=== PATIENT | male | born 1970 ===

== ENCOUNTER 2024-06-30 19:04 | Emergency (ER) | payer BC, SELFPAY ==
[2024-06-30 19:24] VITALS: BP 117/85
--- NOTE | 2024-06-30 19:30 | ED.GENMED ---
ED Provider Triage
<Blade Whitmore PA-C - Last Filed: 06/30/24 19:31>
-
Patient seen by provider in Triage?: Seen in Triage
Attestation: A medical screening examination has been initiated by a qualified medical provider. Based on the assessment performed at this time, it has been determined that an emergent medical condition may exist and the patient has been informed
that further medical evaluation and possible additional diagnostic testing may be needed.
HPI: Flulike symptoms since June 21. Family member at home was positive for the flu on 19 June. Started Tamiflu but experiencing side effects unable to tolerate. Went to urgent care today and had questionable urinary symptoms. Currently
had microscopic hematuria and protein in the urine and was recommended to come to the ER for further evaluation. Patient still endorses some mild upper respiratory-like symptoms currently no urinary symptoms. Urinalysis and chest x-ray ordered.
GENERAL: Alert , in no apparent distress
EYE: No visual abnormalities.
NECK: Trachea midline
ENT: No visible abnormalities.
LUNGS: No acute respiratory distress
NEUROLOGICAL: Alert and oriented
SKIN: Skin intact. No visible changes.
MUSCULOSKELETAL: Moving extremities normally
PSYCH: Normal and appropriate interaction.
This is a medical evaluation conducted in person to initiate diagnostic evaluation and provide initial therapeutics. Please see further documentation by the treating clinician.
History of Present Illness
<Blade Whitmore PA-C - Last Filed: 06/30/24 19:31>
General
Chief Complaint: Cold/Flu/URI Symptoms
Time Seen by Provider: 06/30/24 23:19
<WADE Robertson - Last Filed: 07/01/24 01:53>
General
Source: patient
Exam Limitations: none
History of Present Illness
History of Present Illness:
This is a 54 year old male that comes in with c/o hematuria. States that he has had the flu for about 1.5 weeks. Today he started with feeling like someone kicked him in the groin and blood in his urine. States that he went to and was told to
come to the ER. States that he was a little nauseated. States that he had a fever on the 18 and 19. States that he had a headache this morning but he took his medication and it went away. States that he feels lightheaded and like he is in a fog.
States that he does have some urinary burning. Denies any fever, chills, chest pain, SOB, abd pain, vomiting, diarrhea.
Past History
<WADE Robertson - Last Filed: 07/01/24 01:53>
Past History
ED Past Medical History: HTN and Other (Migraines); Negative Asthma, Hypercholesterolemia or NIDDM
ED Past Surgical History: None
Social History
Tobacco: Non-smoker
Alcohol: Occasional
Personal:
Living: with family
Employment: Employed
Review of Systems
<WADE Robertson - Last Filed: 07/01/24 01:53>
Review of Systems
All Other Systems: ROS reviewed and negative except as documented in HPI and ROS
Constitutional: Reports no symptoms; Denies fever or chills
EENT: Reports no symptoms
Respiratory: Reports no symptoms; Denies cough or trouble breathing
Cardiac: Reports no symptoms; Denies chest pain
ABD/GI: Reports nausea; Denies abdominal pain, vomiting or diarrhea
: Reports bleeding and other (Feels like he was kicked in the groin bilaterally)
Musculoskeletal: Reports no symptoms
Skin: Reports no symptoms
Neurological: Reports other (Lightheaded )
Psychiatric: Reports no symptoms
Phy Exam
<WADE Robertson - Last Filed: 07/01/24 01:53>
General Physical Exam
General Presentation: no apparent distress
General age: appears stated age
General Skin: warm and dry
General Habitus: normal
General Mental: alert
General Hydration: appears well hydrated
ENT Exam
ENT Exam: TM's normal, pharynx normal and neck supple
Eye Exam
Eye Exam: EOMI
Cardiovascular Exam
Cardiovascular Exam: regular rate/rhythm, no edema, no murmur and normal peripheral pulses
Pulmonary Exam
Pulmonary Exam: lungs clear, no respiratory distress, no rales, chest non tender, no crackles, no rhonchi, no wheezing and no cough
Gastrointestinal Exam
Gastrointestinal Exam: normal bowel sounds, non tender, soft, no organomegaly, no pulsatile mass and non distended
Musculoskeletal Exam
Musculoskeletal Exam: full ROM and no edema
Skin Exam
Skin Exam: normal color, warm/dry, no rash and no petechia
Psychiatric Exam
Psychiatric Exam: normal mood/affect
Course
<Blade Whitmore PA-C - Last Filed: 06/30/24 19:31>
Orders/Labs/Results
Orders:
Orders
06/30/24 19:30
CR Chest - 2 Views Urgent
Comment:
Reason For Exam: cough
06/30/24 19:35
Urinalysis Reflex To Culture Urgent
Date Specimen was Collected: 06/30/24
Time Specimen was Collected: 19:29
Urine Microscopic Reflex Cult Urgent
Urine Culture Urgent
JAYLIN Source: U
Specimen Description:
Date Specimen was Collected: 06/30/24
Time Specimen was Collected: 19:29
06/30/24 23:28
0.9% Sodium Chloride 500 ml [Nss] 500 ml IV BOLUS
06/30/24 23:48
Basic Metabolic Panel Urgent
Comment: NO K
Complete Blood Count/With Diff Urgent
07/01/24 00:15
CT Abd/pel Without Iv Or Oral Urgent
Reason For Exam: Hematuria, Groin pain
07/01/24 00:24
Ketorolac [Toradol] 30 mg .ROUTE .STK-MED ONE
07/01/24 00:26
Ketorolac [Toradol] 30 mg IM NOW STA
07/01/24 00:27
Ketorolac [Toradol] 30 mg IV NOW STA
07/01/24 00:44
HYDROmorphone [Dilaudid] 1 mg .ROUTE .STK-MED ONE
Ondansetron Injectable [Zofran] 4 mg .ROUTE .STK-MED ONE
07/01/24 00:45
Ondansetron Injectable [Zofran] 4 mg IV NOW STA
07/01/24 00:48
HYDROmorphone [Dilaudid] 1 mg IV NOW STA
07/01/24 01:24
Tamsulosin [Flomax] 0.4 mg PO NOW STA
07/01/24 01:41
Oxycodone [Roxicodone] 5 mg PO NOW STA
Abnormal Lab Results
06/30/24 06/30/24
19:35 23:48
RDW 11.4 L %
(11.5-14.5)
BUN 21 H mg/dl
(9-20)
Glucose 103 H mg/dl
(70-99)
Urine Ketones 1+ A
(Negative)
Ur Occult Blood Reflex 4+ A
(Negative)
Leukocyte Esterase Rfl 2+ A
(Negative)
Urine RBC >100 A /HPF
(0-2)
Urine Bacteria (Reflex) Few A
(Negative)
Urine Albumin (Reflex) 3+ A
(Neg - Trace)
06/30/24 23:48
06/30/24 23:48
Vital Signs
Initial and Last Documented VS:
Initial Vital Signs
Temp Pulse Resp BP Pulse Ox
98.4 F 92 16 117/85 99
06/30/24 19:24 06/30/24 19:24 06/30/24 19:24 06/30/24 19:24 06/30/24 19:24
Last Documented Vital Signs
Temp Pulse Resp BP Pulse Ox
98.4 F 83 16 131/83 100
06/30/24 19:24 07/01/24 01:51 06/30/24 19:24 07/01/24 01:51 07/01/24 01:51
<WADE Robertson - Last Filed: 07/01/24 01:53>
Orders/Labs/Results
Orders:
Orders
06/30/24 19:30
CR Chest - 2 Views Urgent
Comment:
Reason For Exam: cough
06/30/24 19:35
Urinalysis Reflex To Culture Urgent
Date Specimen was Collected: 06/30/24
Time Specimen was Collected: 19:29
Urine Microscopic Reflex Cult Urgent
Urine Culture Urgent
JAYLIN Source: U
Specimen Description:
Date Specimen was Collected: 06/30/24
Time Specimen was Collected: 19:29
06/30/24 23:28
0.9% Sodium Chloride 500 ml [Nss] 500 ml IV BOLUS
06/30/24 23:48
Basic Metabolic Panel Urgent
Comment: NO K
Complete Blood Count/With Diff Urgent
07/01/24 00:15
CT Abd/pel Without Iv Or Oral Urgent
Reason For Exam: Hematuria, Groin pain
07/01/24 00:24
Ketorolac [Toradol] 30 mg .ROUTE .STK-MED ONE
07/01/24 00:26
Ketorolac [Toradol] 30 mg IM NOW STA
07/01/24 00:27
Ketorolac [Toradol] 30 mg IV NOW STA
07/01/24 00:44
HYDROmorphone [Dilaudid] 1 mg .ROUTE .STK-MED ONE
Ondansetron Injectable [Zofran] 4 mg .ROUTE .STK-MED ONE
07/01/24 00:45
Ondansetron Injectable [Zofran] 4 mg IV NOW STA
07/01/24 00:48
HYDROmorphone [Dilaudid] 1 mg IV NOW STA
07/01/24 01:24
Tamsulosin [Flomax] 0.4 mg PO NOW STA
07/01/24 01:41
Oxycodone [Roxicodone] 5 mg PO NOW STA
Abnormal Lab Results
06/30/24 06/30/24
19:35 23:48
RDW 11.4 L %
(11.5-14.5)
BUN 21 H mg/dl
(9-20)
Glucose 103 H mg/dl
(70-99)
Urine Ketones 1+ A
(Negative)
Ur Occult Blood Reflex 4+ A
(Negative)
Leukocyte Esterase Rfl 2+ A
(Negative)
Urine RBC >100 A /HPF
(0-2)
Urine Bacteria (Reflex) Few A
(Negative)
Urine Albumin (Reflex) 3+ A
(Neg - Trace)
06/30/24 23:48
06/30/24 23:48
Urine negative for infection, positive for blood, Slight Dehydration. Glucose nonfasting.
Vital Signs
Initial and Last Documented VS:
Initial Vital Signs
Temp Pulse Resp BP Pulse Ox
98.4 F 92 16 117/85 99
06/30/24 19:24 06/30/24 19:24 06/30/24 19:24 06/30/24 19:24 06/30/24 19:24
Last Documented Vital Signs
Temp Pulse Resp BP Pulse Ox
98.4 F 83 16 131/83 100
06/30/24 19:24 07/01/24 01:51 06/30/24 19:24 07/01/24 01:51 07/01/24 01:51
<Angel Mcqueen, DO - Last Filed: 07/01/24 03:21>
Orders/Labs/Results
Orders:
Orders
06/30/24 19:30
CR Chest - 2 Views Urgent
Comment:
Reason For Exam: cough
06/30/24 19:35
Urinalysis Reflex To Culture Urgent
Date Specimen was Collected: 06/30/24
Time Specimen was Collected: 19:29
Urine Microscopic Reflex Cult Urgent
Urine Culture Urgent
JAYLIN Source: U
Specimen Description:
Date Specimen was Collected: 06/30/24
Time Specimen was Collected: 19:29
06/30/24 23:28
0.9% Sodium Chloride 500 ml [Nss] 500 ml IV BOLUS
06/30/24 23:48
Basic Metabolic Panel Urgent
Comment: NO K
Complete Blood Count/With Diff Urgent
07/01/24 00:15
CT Abd/pel Without Iv Or Oral Urgent
Reason For Exam: Hematuria, Groin pain
07/01/24 00:24
Ketorolac [Toradol] 30 mg .ROUTE .STK-MED ONE
07/01/24 00:26
Ketorolac [Toradol] 30 mg IM NOW STA
07/01/24 00:27
Ketorolac [Toradol] 30 mg IV NOW STA
07/01/24 00:44
HYDROmorphone [Dilaudid] 1 mg .ROUTE .STK-MED ONE
Ondansetron Injectable [Zofran] 4 mg .ROUTE .STK-MED ONE
07/01/24 00:45
Ondansetron Injectable [Zofran] 4 mg IV NOW STA
07/01/24 00:48
HYDROmorphone [Dilaudid] 1 mg IV NOW STA
07/01/24 01:24
Tamsulosin [Flomax] 0.4 mg PO NOW STA
07/01/24 01:41
Oxycodone [Roxicodone] 5 mg PO NOW STA
Abnormal Lab Results
06/30/24 06/30/24
19:35 23:48
RDW 11.4 L %
(11.5-14.5)
BUN 21 H mg/dl
(9-20)
Glucose 103 H mg/dl
(70-99)
Urine Ketones 1+ A
(Negative)
Ur Occult Blood Reflex 4+ A
(Negative)
Leukocyte Esterase Rfl 2+ A
(Negative)
Urine RBC >100 A /HPF
(0-2)
Urine Bacteria (Reflex) Few A
(Negative)
Urine Albumin (Reflex) 3+ A
(Neg - Trace)
06/30/24 23:48
06/30/24 23:48
Vital Signs
Initial and Last Documented VS:
Initial Vital Signs
Temp Pulse Resp BP Pulse Ox
98.4 F 92 16 117/85 99
06/30/24 19:24 06/30/24 19:24 06/30/24 19:24 06/30/24 19:24 06/30/24 19:24
Last Documented Vital Signs
Temp Pulse Resp BP Pulse Ox
98.4 F 83 16 131/83 100
06/30/24 19:24 07/01/24 01:51 06/30/24 19:24 07/01/24 01:51 07/01/24 01:51
<WADE Robertson - Last Filed: 07/01/24 01:53>
MDM/Problems Addressed
Differential Diagnosis Includes:
Renal calculus, Hematuria
MDM/Problems Addressed:
This is a 54 year old male that comes in with c/o hematuria. States that he was sick for 1.5 weeks. Then today he started with hematuria. States that it feels like someone kicked him in the groin.
Will check labs, CT scan and give IV fluids. Urine. Patient refused pain medication at this time.
Back into see patient. Explained that he has a 4mm stone that is almost to the bladder. Encouraged patient to increase his water intake to 8-8oz glasses daily. Will sent prescription to his pharmacy. The first for Flomax to help relax the smooth
muscle. The second Zofran to help with any nausea/vomiting. And the last Oxycodone for severe pain. Patient can also use Tylenol 1000mg every 6 hours and Ibuprofen 600mg every 6 hours with food for lesser pain. Patient to strain his urine. Follow up
with the Urologist. Return with any fever, vomiting that is not controlled or any other concerns.
Chronic conditions affecting care:
NA
Acute Exacerbation and/or Progression of Chronic Illness:
NA
<WADE Robertson - Last Filed: 07/01/24 01:53>
*Radiology
Radiology exam reviewed: radiology read reviewed (CT night hawk-Mild right hydroureteronephrosis due to an obstructing 4mm stone at the right UVJ of the bladder. MIld asymmetric right perinephris fat stranding. Multiple additional small
nonobstructing bilateral renal stones seen measuring up to 4mm. No left sided hydronephrosis. Bladder is mildly ), all reviewed NAD by ED Provider (CT cont- mildly distended and otherwise unremarkable. Subcentimeter left hepatic hypodensity likely a
cyst. Normal gallbladder. No biliary dilation. Mild stool present within the colon. Normal appendix. No evidence of bowel obstruction or bowel wall thickening. No free fluid or free air. ) and other (CT cont- Lung bases are clear. Mild degenerative
changes within the spine. )
*Pulse Oximetry
Patient hypoxic: no
*EKG
Interpreted by ED Provider?: NA
Rate: EKG- N/A
*Mental Health Consultant Interpretation
Rate: Mental Health Consultant- N/A
*Critical Care Note
Total Time (30-74mins, 75-104mins- exclusive of procedures): Not Applicable
ED Attending Note
<Blade Whitmore PA-C - Last Filed: 06/30/24 19:31>
-
Portions of this chart may have been created with voice recognition software.� Occasional wrong word or��sound alike� substitutions may have occurred due to the inherent limitations of voice recognition software.
<Angel Mcqueen DO - Last Filed: 07/01/24 03:21>
ED Attending Note
Patient seen and examined by attending physician: Yes
ED Attending Note:
I have reviewed and agree with history treatment plan by Maye Dumont. My exam revealed 54-year-old male in no acute distress. Suspect kidney stone passed in the bladder. No signs of UTI. Stable for discharge. Follow-up with urology as needed.
Discharge Plan
Departure
Patient Disposition: Home (Routine Discharge)
Date of Disposition: 07/01/24
Time of Disposition: 01:44
Patient with high blood pressure during this ER visit?: No
Condition: Good
Covid-19: Not Applicable
Discharge Problem:
Renal calculus, right
Instructions: Kidney stones in adults, How to Strain Your Urine, Narcotic Pain Medication
Prescriptions:
New
tamsulosin [Flomax] 0.4 mg capsule
0.4 mg PO HS Qty: 7 0RF
ondansetron 4 mg tablet,disintegrating
4 mg PO Q8H PRN (Reason: nausea and vomiting) Qty: 10 0RF
oxycodone 5 mg tablet
5 mg PO Q6H PRN (Reason: Pain) Qty: 7 0RF
Referrals:
Will Lennon MD [Active] - Follow up in 5-7 days
Tello Mcdowell DO [Family Provider] -
Activity Restrictions/Additional Instructions:
As discussed, you have a 4mm stone that is almost to the bladder on the right. Please increase your water intake to 8-8oz glasses daily. You have had three prescriptions sent to your Pharmacy. The first is for Flomax that will help relax the smooth
muscle so you can pass the stone. The second if for Zofran to help with any nausea/vomiting. The last is a narcotic pain medication that will help with severe pain. Please try and take with food. You may use Tylenol 1000mg every 6 hours for pain and
Ibuprofen 600mg every 6 hours with food for lesser pain. Please strain your urine. Follow up with the Urologist in the next 5-7 days. IF YOU HAVE VOMITING THAT IS NOT CONTROLLED, FEVER, OR YOU HAVE ANY OTHER CONCERNS PLEASE RETURN TO THE EMERGENCY
ROOM.
Interventions
Interventions:
*Risk Screen - Suicide Last Done: 06/30/24 19:24
*General Assessment Last Done: 06/30/24 22:35
*Neglect/Abuse Screening Last Done: 06/30/24 19:24
ED- Fall Risk Assessment Last Done: 06/30/24 22:37
*ED COVID-19 Vaccine History Last Done: 06/30/24 22:35
*Nursing Disposition Last Done: 07/01/24 01:53
ED- Pulmonary Assessment Last Done: 06/30/24 22:38
Discharge Date and Time
Discharge Date/Time: 07/01/24 02:01
Print Language: TURKMEN
[2024-06-30 19:47] LABS: Urine Albumin 3+ (Neg - Trace); Urine Bilirubin Negative (Negative); Urine Character Slightly Cloudy (Clear); Urine Color Amber; Urine Glucose Negative (Negative); Urine Ketone 1+ (Negative); Urine Leukocyte 2+ (Negative); Urine Nitrite Negative (Negative); Urine Specific Gravity 1.025 (<1.030); Urine Urobilinogen 1+ (Neg - 1+)
[2024-06-30 19:54] LABS: Urine Occult Blood 4+ (Negative); Urine Red Blood Cell >100 /HPF (0-2); Urine Squamous Cell 0-2 /LPF (Few)
[2024-06-30 19:57] LABS: Urine Bacteria Few (Negative); Urine Calcium Oxalate Crystals Seen
[2024-06-30 22:33] VITALS: BMI 22.9
[2024-06-30] MEDS: NSS 500 IV (23:48)
[2024-07-01 00:17] LABS: Blood Urea Nitrogen 21 mg/dl (9-20); Calcium 9.1 mg/dl (8.4-10.2); Carbon Dioxide 27 mmol/L (22-30); Chloride 101 mmol/L (98-107); Estimated Creatinine Clearance 125 ml/min; Glucose 103 mg/dl (70-99); Sodium 137 mmol/L (135-145); eGFR > 60.00
[2024-07-01 00:26] LABS: Hematocrit 46.8 % (39.0-52.0); Mean Corpuscular Hgb 30.7 pg (27.0-31.0); Mean Corpuscular Volume 89.8 fL (80.0-94.0); Red Blood Cell Count 5.21 10^6/uL (4.70-6.10); White Blood Cell Count 9.4 10^3/uL (4.8-10.8)
[2024-07-01 00:27] LABS: % Basophils 0.4 % (0-2); % Eosinophils 0.9 % (0-6); % Immature Granulocytes 0.3 % (0-0.5); % Lymphocytes 24.8 % (20.5-51.1); % Monocytes 5.1 % (1.7-9.3); % Neutrophils 68.5 % (42.2-75.2); Absolute Lymphocytes 2.3 10^3/uL (1.2-3.4); Absolute Neutrophils 6.4 10^3/uL (1.4-6.5); Mean Corp Hgb Conc. 34.2 g/dL (33.0-37.0); Mean Platelet Volume 9.1 fL (7.4-10.4); Platelet Count 308 10^3/uL (130-400); Red Cell Dist. Width 11.4 % (11.5-14.5)
[2024-07-01] MEDS: TORADOL 30 MG IV (00:27)
[2024-07-01 00:28] LABS: Absolute Eosinophils 0.1 10^3/uL (0-0.7); Absolute Monocytes 0.5 10^3/uL (0.1-0.6); Nucleated Red Blood Cells % 0 % (-)
[2024-07-01] MEDS: ZOFRAN 4 MG IV (00:45)
[2024-07-01] MEDS: DILAUDID 1 MG IV (00:49)
[2024-07-01] MEDS: FLOMAX 0.4 MG PO (01:32)
[2024-07-01] MEDS: ROXICODONE 5 MG PO (01:46)
[2024-07-01 01:51] VITALS: BP 131/83
== END 2024-07-01 02:01 | disposition home or self-care (01) ==
LOC: EMR 19:04
PROVIDERS: Clinical Nurse Specialist Family Health; Emergency Medicine; EMERGENCY PHYSICIAN Emergency Medicine; FAMILY PHYSICIAN Family Medicine
DX: N13.2 Hydronephrosis with renal and ureteral calculous obstruction (principal)
CPT/HCPCS: 99285; 96374; 96375 ×2; 96361; 71046; 74176; 80048; 80053; 81003; 81015; 85025; 87086

== ENCOUNTER 2024-11-30 11:14 | Emergency (ER) | payer BC, SELFPAY ==
[2024-11-30 11:20] VITALS: BP 161/101
[2024-11-30 11:26] VITALS: BP 167/90
[2024-11-30 11:43] LABS: Hematocrit 44.5 % (39.0-52.0); Hemoglobin 14.9 g/dL (13.0-18.0); Mean Corp Hgb Conc. 33.5 g/dL (33.0-37.0); Mean Corpuscular Volume 92.7 fL (80.0-94.0); Nucleated Red Blood Cells % 0 % (-); Platelet Count 229 10^3/uL (130-400); Red Cell Dist. Width 11.9 % (11.5-14.5)
[2024-11-30 12:18] LABS: ALT (SGPT) 18 U/L (0-50); AST (SGOT) 20 U/L (17-59); Albumin 4.5 g/dl (3.5-5.0); Alkaline Phosphatase 62 U/L (38-126); Blood Urea Nitrogen 21 mg/dl (9-20); Calcium 9.5 mg/dl (8.4-10.2); Carbon Dioxide 28 mmol/L (22-30); Chloride 107 mmol/L (98-107); Glucose 109 mg/dl (70-99); Potassium 4.6 mmol/L (3.5-5.1); Sodium 140 mmol/L (135-145); Total Protein 6.9 g/dl (6.3-8.2); eGFR > 60.00
--- NOTE | 2024-11-30 12:19 | ED.CVA ---
History of Present Illness
General
Chief Complaint: CVA/TIA Symptoms
Source: patient and family
Exam Limitations: none
Time Seen by Provider: 11/30/24 11:35
Nursing documentation reviewed up to this point in time: agreed with
Onset of Stroke Symptoms
Onset of symptoms known: Yes
Date of onset of symptoms: 11/30/24
Time of onset of symptoms: 09:30
History of Present Illness
History of Present Illness:
54-year-old male long history of migraine headaches, approximately 20 headaches per months uses Maxalt previously used Fioricet and other remedies, but not currently--- headache this morning took 10 mg of Maxalt with relief then developed numbness
left side of his face blood pressure was slightly elevated I came here to the ER no slurred speech headache is improved no arm or leg weakness no visual changes, no arm or leg weakness never had the sort of symptoms with migraines previously,
Past History
Past History
ED Past Medical History: HTN and Other (Migraines); Negative Asthma, Hypercholesterolemia or NIDDM
ED Past Surgical History: None
Social History
Tobacco: Non-smoker
Alcohol: Occasional
Personal:
Living: with family
Employment: Employed
Phy Exam
Physical Exam
Physical Exam:
Physical Exam
General: no apparent distress, not acutely ill
Neck: No tongue bite
Heart: s1/s2 regular rate and rhythm, no murmur. equal radial pulses.
Lungs: no acute respiratory distress. clear bilaterally
Abdomen: Nontender
Neuro: alert and oriented. no focal neurological deficits normal finger-nose bilaterally
Skin: no rash
Psychiatric: well kept. interactive and cooperative
Extremities: no edema.
Course
Orders/Labs/Results
Orders:
Orders
11/30/24 11:28
EKG [Electrocardiogram (*1)] Urgent
Reason for Study: Hypertension, Benign
EKG- Treatment ONCE
11/30/24 11:35
CT Head W/o Iv Contrast Urgent
Comment:
Reason For Exam: 'numbness' left face
11/30/24 11:36
CBC/With Diff [Complete Blood Count/With Diff] Urgent
CMP [Comprehensive Metabolic Panel] Urgent
11/30/24 11:45
Prochlorperazine [Compazine] 10 mg IV NOW STA
11/30/24 11:46
0.9% Sodium Chloride 1000 ml [Nss] 1,000 ml IV BOLUS
Abnormal Lab Results
11/30/24
11:36
Absolute Lymphs (auto) 1.0 L 10^3/uL
(1.2-3.4)
Neutrophils % 77.9 H %
(42.2-75.2)
Lymphocytes % 14.9 L %
(20.5-51.1)
BUN 21 H mg/dl
(9-20)
Glucose 109 H mg/dl
(70-99)
11/30/24 11:36
11/30/24 11:36
Vital Signs
Initial and Last Documented VS:
Initial Vital Signs
Temp Pulse Resp BP Pulse Ox
98.1 F 75 18 161/101 99
11/30/24 11:20 11/30/24 11:20 11/30/24 11:20 11/30/24 11:20 11/30/24 11:20
Last Documented Vital Signs
Temp Pulse Resp BP Pulse Ox
98.1 F 66 13 167/90 100
11/30/24 11:20 11/30/24 11:45 11/30/24 11:45 11/30/24 11:26 11/30/24 12:21
MDM/Problems Addressed
Differential Diagnosis Includes:
Complicated migraine, seizure with Danny's paralysis mass malignancy stroke hypertensive urgency
MDM/Problems Addressed:
Left facial numbness
Chronic conditions affecting care:
Chronic migraine
Acute Exacerbation and/or Progression of Chronic Illness:
Chronic migraine
*Pulse Oximetry
SaO2: 100
Oxygen Mode of Delivery: Room air
Patient hypoxic: no
*Chief Operating Engineer Interpretation
Rate: normal
Interpretation: normal
Heart Rate: 78
Rhythm: sinus
*Critical Care Note
Total Time (30-74mins, 75-104mins- exclusive of procedures): Not Applicable
Update Note
Update Note:
1 PM, CT noted labs noted, patient feeling much better, encouraged to follow-up with his outpatient neurologist
ED Attending Note
-
Portions of this chart may have been created with voice recognition software.� Occasional wrong word or��sound alike� substitutions may have occurred due to the inherent limitations of voice recognition software.
Discharge Plan
Departure
Patient Disposition: Home (Routine Discharge)
Date of Disposition: 11/30/24
Time of Disposition: 13:23
Patient with high blood pressure during this ER visit?: No
Condition: Good
Discharge Problem:
Complicated migraine
Instructions: Paresthesia (DC), Migraine in adults
Prescriptions:
New
prochlorperazine maleate [Compazine] 10 mg tablet
10 mg PO Q6H PRN (Reason: nausea and vomiting) Qty: 20 0RF
No Action
tamsulosin [Flomax] 0.4 mg capsule
0.4 mg PO HS Qty: 7 0RF
ondansetron 4 mg tablet,disintegrating
4 mg PO Q8H PRN (Reason: nausea and vomiting) Qty: 10 0RF
oxycodone 5 mg tablet
5 mg PO Q6H PRN (Reason: Pain) Qty: 7 0RF
Referrals:
UNKNOWN - PT NOT,INTERVIEWE [Family Provider]
Interventions
Interventions:
*Risk Screen - Suicide Last Done: 11/30/24 11:20
*General Assessment Last Done: 11/30/24 11:20
*Neglect/Abuse Screening Last Done: 11/30/24 11:20
*ED- Fall Risk Assessment Last Done: 11/30/24 11:32
*ED COVID-19 Vaccine History Last Done: 11/30/24 11:32
ED- Pulmonary Assessment Last Done: 11/30/24 11:40
ED- Neurological Assessment Last Done: 11/30/24 11:40
ED- Cardiac Assessment Last Done: 11/30/24 11:40
Discharge Date and Time
Print Language: FAROESE
[2024-11-30] MEDS: NSS 1000 IV (12:34)
[2024-11-30] MEDS: COMPAZINE 10 MG IV (12:35)
[2024-11-30 12:58] VITALS: BP 135/85
[2024-11-30 13:00] VITALS: BP 132/84
== END 2024-11-30 13:37 | disposition home or self-care (01) ==
LOC: EMR 11:14
PROVIDERS: Emergency Medicine; EMERGENCY PHYSICIAN Emergency Medicine; FAMILY PHYSICIAN Family Medicine
DX: G43.109 Migraine with aura, not intractable, without status migrainosus (principal); R20.0 Anesthesia of skin; I10 Essential (primary) hypertension
CPT/HCPCS: 99284; 96374; 96361; 70450; 80053; 85025; 93005